=== PATIENT | male | born 1950 | race Caucasian/White ===

== ENCOUNTER → 2018-07-24 | Outpatient (CLI) | payer OTHER | END | disposition home or self-care (01) | LOC: PETCFH 12:38 | PROVIDERS: ATTEND Internal Medicine Hematology & Oncology | DX: C34.30 Malignant neoplasm of lower lobe, unspecified bronchus or lung (principal); K57.30 Diverticulosis of large intestine without perforation or abscess without bleeding; K40.90 Unilateral inguinal hernia, without obstruction or gangrene, not specified as recurrent; M19.90 Unspecified osteoarthritis, unspecified site; J18.9 Pneumonia, unspecified organism | CPT/HCPCS: 78815; A9552 ==